=== PATIENT | female | born 1980 | race Caucasian/White ===

== ENCOUNTER → 2018-11-06 14:34 | Outpatient (CLI) | payer BC, SELFPAY ==
--- NOTE | 2018-11-06 14:44 | RAD_ITS ---
STUDY: X-RAY - LEFT FOOT CLINICAL: Pain, posterior tibial tendinitis. TECHNIQUE: 3 view(s) of the foot. COMPARISON: None. FINDINGS: Normal talus, calcaneus, and tarsal bones. Normal visualized subtalar, talonavicular, calcaneocuboid, tarsal and tarsometatarsal articulations. There is an ossicle at the dorsal aspect of the talonavicular articulation. Normal metatarsi. Normal metatarsophalangeal joint of the great toe. Normal tibial and fibular sesamoid bones. Normal interphalangeal joint of the great toe. Normal phalanges of the great toe. Normal second through fifth metatarsophalangeal joints. Normal interphalangeal joints and phalanges of the lesser toes. The soft tissue structures are unremarkable. RAD/Foot min 3 Views IMPRESSION: Unremarkable x-ray examination of the left foot. Electronically Signed: Jose E Xavier MD at 15:19 EDT Tel , Service support ,
== END ==
LOC: HPRAD 14:39
PROVIDERS: Family Provider Nurse Practitioner Family; Referring Provider Podiatrist; Visit Provider Podiatrist
DX: M76.822 Posterior tibial tendinitis, left leg (principal)
CPT/HCPCS: 73630

== ENCOUNTER → 2020-09-23 | Outpatient (CLI) | payer BC, SELFPAY ==
[2020-09-23 10:34] VITALS: BMI 20.9
[2020-09-28 15:13] LABS: HPV APTIMA, High Risk Negative (Negative)
== END | disposition home or self-care (01) ==
LOC: LABSPEC 13:41
PROVIDERS: PCP Nurse Practitioner Family; Referring Provider Nurse Practitioner Women's Health; Visit Provider Nurse Practitioner Women's Health
DX: Z12.4 Encounter for screening for malignant neoplasm of cervix (principal)
CPT/HCPCS: 87624; 88175; G0145